=== PATIENT | female | born 1935 | race Caucasian/White ===

== ENCOUNTER 2017-08-29 05:27 | Emergency (ER) | payer MEDICARE ==
[~2017-08-29] VITALS: Ht 152.4 cm; Wt 60.7 kg
[~2017-08-29 05:27] MED LIST: FLUT1DIS3 INH; METO100T5 PO; METO25TA2 PO
[2017-08-29] MEDS ORDERED: KETOROLAC 30 MG/1 ML ONE (05:54)
[2017-08-29] MEDS ORDERED: HYDROmorphone 2 MG/ML, 1ML ONE ×3 (05:55→09:30)
[2017-08-29] MEDS ORDERED: DIAZEPAM 5 MG TABLET ONE (05:55)
[2017-08-29] MEDS ORDERED: KETOROLAC 30 MG/1 ML IVPush ONE (06:00)
[2017-08-29] MEDS ORDERED: DIAZEPAM 5 MG TABLET PO ONE (06:00)
[2017-08-29] MEDS ORDERED: HYDROmorphone 2 MG/ML, 1ML IV ONE (06:00)
[2017-08-29] MEDS ORDERED: HYDROmorphone 1 MG/ML, 1ML IV ONE (09:30)
[2017-08-29 09:38] VITALS: BP 101/50
[2017-08-30] MEDS ORDERED: ESTR0.5T PO (10:34)
[2017-08-30] MEDS ORDERED: CHOL10002 PO (10:35)
== END 2017-08-29 11:28 | disposition home or self-care (01) ==
LOC: ED 11:05
DX: M54.6 Pain in thoracic spine (principal); I49.9 Cardiac arrhythmia, unspecified; I10 Essential (primary) hypertension
CPT/HCPCS: 96374; 96375; 96376; 99284; J1170; J1885

== ENCOUNTER 2017-08-30 09:37 | Emergency (ER) | payer MEDICARE ==
[~2017-08-30] VITALS: Ht 152.4 cm; Wt 59.9 kg
[2017-08-30] MEDS ORDERED: DIAZEPAM 5 MG TABLET PO ONE (10:00)
[2017-08-30] MEDS ORDERED: DIAZEPAM 5 MG TABLET ONE (10:25)
[2017-08-30] MEDS ORDERED: ESTR0.5T PO (10:34)
[2017-08-30] MEDS ORDERED: CHOL10002 PO (10:35)
[2017-08-30 10:44] LABS: MICROSCOPIC NOT IND
[2017-08-30] MEDS ORDERED: HYDROmorphone 2 MG/ML, 1ML ONE ×2 (10:49→12:29)
[2017-08-30 10:55] LABS: CULTURE INDICATED? NO
[2017-08-30] MEDS ORDERED: HYDROmorphone 2 MG/ML, 1ML IVPush PRN ×2 (11:00→12:30)
[2017-08-30 11:10] LABS: INTERNATIONAL NORMALIZED RATIO 0.96 (0.93-1.1); PROTHROMBIN TIME 9.9 Seconds (9.6-11.5)
[2017-08-30 11:13] LABS: BASOPHILS # (AUTO) 0.06 x10^3/uL (0-0.1); BASOPHILS % (AUTO) 1 % (0-1); EOSINOPHILS # (AUTO) 0.26 x10^3/uL (0-0.4); EOSINOPHILS % (AUTO) 3 % (1-7); LYMPHOCYTES % (AUTO) 24 % (22-44); MD NO; MEAN CORPUSCULAR HEMOGLOBIN 29.5 pg (27.0-34.8); MEAN CORPUSCULAR HGB CONC 33.1 g/dL (32.4-35.8); MEAN CORPUSCULAR VOLUME 89.2 fL (80-100); MEAN PLATELET VOLUME 10.4 fL (7.4-10.4); MONOCYTES # (AUTO) 0.47 x10^3/uL (0.2-0.8); MONOCYTES % (AUTO) 5 % (2-9); NEUTROPHILS # (AUTO) 6.36 x10^3/uL (1.8-6.8); NEUTROPHILS % (AUTO) 67 % (42-75); PLATELET COUNT 183 x10^3/uL (130-400); RED BLOOD COUNT 4.96 x10^6/uL (3.82-5.3); RED CELL DISTRIBUTION WIDTH 13.3 % (9.6-15.2)
[2017-08-30 11:14] LABS: ALANINE AMINOTRANSFERASE 39 U/L (12-78); ALBUMIN 3.6 g/dL (3.4-5.0); ANION GAP 8 mmol/L (5-15); CALCIUM 8.4 mg/dL (8.5-10.1); CHLORIDE 110 mmol/L (98-107); CREATININE 0.76 mg/dL (0.55-1.02)
[2017-08-30 11:18] LABS: ALKALINE PHOSPHATASE 70 U/L (45-117); BILIRUBIN,TOTAL 0.5 mg/dL (0.2-1.0); TOTAL PROTEIN 6.8 g/dL (6.4-8.2); TROPONIN I < 0.015 ng/mL (0.000-0.045)
[2017-08-30] MEDS ORDERED: OMNIPAQUE 350 MG/ML, 100ML BOTTLE ONE (12:05)
[2017-08-30 12:47] VITALS: BP 118/53
== END 2017-08-30 12:59 | disposition home or self-care (01) ==
LOC: ED 12:45
DX: M54.6 Pain in thoracic spine (principal); G89.29 Other chronic pain; I10 Essential (primary) hypertension; Z88.6 Allergy status to analgesic agent; R79.1 Abnormal coagulation profile
CPT/HCPCS: 36415; 71045; 71275; 80053; 81003; 84484; 85025; 85610; 85730; 93005; 96374; 96376; 99285; J1170; Q9967

== ENCOUNTER 2017-09-09 08:06 | Emergency (ER) | payer MEDICARE ==
[~2017-09-09] VITALS: Ht 152.4 cm; Wt 59.1 kg
[~2017-09-09 08:06] MED LIST changes: +CHOL10002 PO; +ESTR0.5T PO
[2017-09-09 08:07] VITALS: BP 129/77
[2017-09-09] MEDS ORDERED: METHOCARBAMOL 750 MG TABLET PO ONE (09:00)
[2017-09-09] MEDS ORDERED: KETOROLAC 30 MG/1 ML IM ONE (09:00)
[2017-09-09] MEDS ORDERED: HYDROmorphone 1 MG/ML, 1ML IM ONE (09:00)
[2017-09-09] MEDS ORDERED: ONDANSETRON ODT 4 MG PO ONE (09:00)
[2017-09-09] MEDS ORDERED: METHOCARBAMOL 750 MG TABLET ONE (09:04)
[2017-09-09] MEDS ORDERED: KETOROLAC 30 MG/1 ML ONE (09:04)
[2017-09-09] MEDS ORDERED: HYDROmorphone 2 MG/ML, 1ML ONE (09:04)
[2017-09-09] MEDS ORDERED: ONDANSETRON ODT 4 MG ONE (09:04)
[2017-09-09] MEDS ORDERED: KETOROLAC 30 MG/1 ML IVPush ONE (09:30)
[2017-09-09] MEDS ORDERED: HYDROmorphone 1 MG/ML, 1ML IV ONE (09:30)
[2017-09-09 09:39] LABS: BASOPHILS % (AUTO) 1 % (0-1); EOSINOPHILS % (AUTO) 3 % (1-7); LYMPHOCYTES # (AUTO) 3.41 x10^3/uL (1-3.4); LYMPHOCYTES % (AUTO) 26 % (22-44); MD NO; MEAN CORPUSCULAR HEMOGLOBIN 30.5 pg (27.0-34.8); MEAN CORPUSCULAR VOLUME 89.8 fL (80-100); MEAN PLATELET VOLUME 10.1 fL (7.4-10.4); MONOCYTES # (AUTO) 0.67 x10^3/uL (0.2-0.8); MONOCYTES % (AUTO) 5 % (2-9); NEUTROPHILS # (AUTO) 8.75 x10^3/uL (1.8-6.8); NEUTROPHILS % (AUTO) 66 % (42-75); PLATELET COUNT 226 x10^3/uL (130-400); RED BLOOD COUNT 5.42 x10^6/uL (3.82-5.3); RED CELL DISTRIBUTION WIDTH 13.3 % (9.6-15.2)
[2017-09-09 09:51] LABS: ALANINE AMINOTRANSFERASE 34 U/L (12-78); ALBUMIN 3.8 g/dL (3.4-5.0); ANION GAP 7 mmol/L (5-15); CALCIUM 9.1 mg/dL (8.5-10.1); CHLORIDE 106 mmol/L (98-107); CREATININE 0.74 mg/dL (0.55-1.02)
[2017-09-09 09:53] LABS: ALKALINE PHOSPHATASE 76 U/L (45-117); BILIRUBIN,TOTAL 0.8 mg/dL (0.2-1.0); TOTAL PROTEIN 7.3 g/dL (6.4-8.2)
[2017-09-09 10:08] LABS: MICROSCOPIC NOT IND
[2017-09-09 10:11] LABS: CULTURE INDICATED? NO
== END 2017-09-09 10:48 | disposition home or self-care (01) ==
LOC: ED 10:47
DX: S39.012A Strain of muscle, fascia and tendon of lower back, initial encounter (principal); M62.830 Muscle spasm of back; I10 Essential (primary) hypertension; Z87.891 Personal history of nicotine dependence; X58.XXXA Exposure to other specified factors, initial encounter; Y93.89 Activity, other specified; Y99.8 Other external cause status; Y92.89 Other specified places as the place of occurrence of the external cause
CPT/HCPCS: 36415; 72110; 80053; 81003; 85025; 96374; 96375; 99285; J1170; J1885; Q0162

== ENCOUNTER → 2018-07-07 | Outpatient (CLI) | payer MEDICARE | END | disposition home or self-care (01) | LOC: CFH 10:41 | PROVIDERS: ATTEND Internal Medicine | DX: R05 Cough (principal) | CPT/HCPCS: 71046 ==

== ENCOUNTER 2018-07-30 19:42 | Emergency (ER) | payer MEDICARE ==
[~2018-07-30] VITALS: Ht 152.4 cm; Wt 62.6 kg
[2018-07-30] MEDS ORDERED: HYDROmorphone 2 MG/ML, 1ML ONE (20:07)
[2018-07-30] MEDS ORDERED: ONDANSETRON 2MG/ML, 2ML ONE (20:16)
--- NOTE | 2018-07-30 20:20 | NUR ---
Assumed care of patient. C/O left sided thoracic severe back pain. Patient anxious and pacing in room. Patient states that this feels similar to the chornic back spasms shes had for 15 years, but the onset was more sudden than usual. Denies SOB, CP, dizziness, palpitations, N/V. IV started, labs drawn, and meds admin. Placed on NIBP, pulse ox and haz tech. SO at bedside. Will continue to monitor.
[2018-07-30] MEDS ORDERED: FLUT1AER INH (20:23)
--- NOTE | 2018-07-30 20:23 | NUR ---
pt resting on gurney, monitors in place, call light within reach, provided pt with warm blanket, erp at bedside
[2018-07-30 20:24] VITALS: BP 132/57
--- NOTE | 2018-07-30 20:25 | NUR ---
Report to ADITHYA Hdz.
[2018-07-30] MEDS ORDERED: ONDANSETRON 2MG/ML, 2ML IVPush ONE (20:30)
[2018-07-30] MEDS ORDERED: SODIUM CHLORIDE FLUSH 10ML SYR IVF ONE (20:30)
[2018-07-30] MEDS ORDERED: HYDROmorphone 2 MG/ML, 1ML IVPush PRN (20:30)
== END 2018-07-30 21:31 | disposition home or self-care (01) ==
LOC: ED 20:21
DX: M62.830 Muscle spasm of back (principal); I10 Essential (primary) hypertension; Z90.49 Acquired absence of other specified parts of digestive tract; Z90.710 Acquired absence of both cervix and uterus; Z87.891 Personal history of nicotine dependence; Z90.721 Acquired absence of ovaries, unilateral
CPT/HCPCS: 96374; 96375; 99283; J1170; J2405

== ENCOUNTER 2018-10-26 09:48 | Emergency (ER) | payer MEDICARE ==
[~2018-10-26] VITALS: Ht 152.4 cm; Wt 62.3 kg
[2018-10-26 12:41] VITALS: BP 147/81
== END 2018-10-26 12:43 | disposition home or self-care (01) ==
LOC: ED 11:25
DX: G89.29 Other chronic pain (principal); M54.2 Cervicalgia; I10 Essential (primary) hypertension; Z90.710 Acquired absence of both cervix and uterus; Z90.49 Acquired absence of other specified parts of digestive tract
CPT/HCPCS: 72050; 96374; 96375; 96376; 99283; J1170; J2405; J3360

== ENCOUNTER 2018-10-31 14:28 | Emergency (ER) | payer MEDICARE ==
[~2018-10-31] VITALS: Ht 152.4 cm; Wt 62.6 kg
[2018-10-31 18:04] VITALS: BP 135/55
== END 2018-10-31 19:25 | disposition home or self-care (01) ==
LOC: ED 19:18
DX: G89.29 Other chronic pain (principal); M54.5 Low back pain; M54.6 Pain in thoracic spine; R10.9 Unspecified abdominal pain; I10 Essential (primary) hypertension
CPT/HCPCS: 36415; 80048; 81003; 82040; 85025; 96372; 99283; J1170